=== PATIENT | female | born 1995 | race Caucasian/White ===

== ENCOUNTER 2017-11-24 08:49 | Emergency (ER) | payer OTHER ==
[2017-11-24 08:55] VITALS: BP 119/74
--- NOTE | 2017-11-24 08:57 | EDPHY ---
H & P Stated Complaint: + mono dx friday rx dexamethasone/not better r ear pain Time Seen by Provider: 11/24/17 08:51 HPI/ROS: CHIEF COMPLAINT: Sore throat, right ear pain HISTORY OF PRESENT ILLNESS: The patient presents the ED with complaints of an ongoing sore throat right ear pain. She developed symptoms on . She was seen at urgent care and diagnosed with mono. She re-presented over the weekend with increasing pharyngeal pain and swelling. She was started on dexamethasone at that point time. The patient was diagnosed with a positive IgM titer. The patient was prescribed a short course of dexamethasone the during her repeat visit to the Urgent Care over the weekend. The patient denies any significant abdominal pain. She denies vomiting or diarrhea. She has been taking Tylenol and ibuprofen at home. REVIEW OF SYSTEMS: A comprehensive 10 point review of systems is otherwise negative aside from elements mentioned in the history of present illness. Source: Patient Exam Limitations: No limitations - Personal History LMP (Females 10-55): IUD In Place Current Tetanus Diphtheria and Acellular Pertussis (TDAP): Yes - Medical/Surgical History Hx Asthma: No Hx Chronic Respiratory Disease: No Hx Diabetes: No Hx Cardiac Disease: No Hx Renal Disease: No Hx Cirrhosis: No Hx Alcoholism: No Hx HIV/AIDS: No Hx Splenectomy or Spleen Trauma: No Other PMH: denies - Social History Smoking Status: Never smoked - Physical Exam Exam: General Appearance: Alert, no distress Eyes: Pupils equal and round no pallor or injection ENT, Mouth: Bilateral tonsillar exudates and mild swelling, no clinical evidence of peritonsillar abscess or retropharyngeal abscess. Right tympanic membrane is clear without evidence of effusion or infection. Respiratory: There are no retractions, lungs are clear to auscultation Cardiovascular: Regular rate and rhythm Gastrointestinal: Abdomen is soft and nontender, no masses, bowel sounds normal Neurological: 5/5 strength all 4 extremities Skin: Warm and dry, no rashes Musculoskeletal: Neck is supple nontender, no clinical evidence of meningitis. Extremities: symmetrical, full range of motion Constitutional: Initial Vital Signs Temperature (C) 36.9 C 11/24/17 08:53 Heart Rate 84 11/24/17 08:53 Respiratory Rate 18 11/24/17 08:53 Blood Pressure 119/74 11/24/17 08:53 O2 Sat (%) 97 11/24/17 08:53 O2 Delivery Mode Room Air Allergies/Adverse Reactions: amoxicillin Allergy (Verified 11/24/17 08:52) Home Medications: Medication Instructions Recorded DEXAMETHASONE 11/24/17 oxyCODONE IR [Oxycodone Ir (*)] 5 mg PO Q8 PRN #10 tab 11/24/17 Medical Decision Making ED Course/Re-evaluation: The patient presents the ED with symptomatic mononucleosis without evidence of peritonsillar abscess or meningitis. She is well-appearing and well-hydrated. The patient has been instructed to continue fluid rehydration. She should continue Tylenol and ibuprofen as needed for pain. She is taking dexamethasone for 2 more days for pharyngeal swelling. The patient will be provided a short course of Oxy IR for additional analgesia. She has been instructed about the dangers of this medication. Departure - Departure Disposition: Home, Routine, Self-Care Clinical Impression: Mononucleosis Condition: Good Instructions: Mononucleosis (ED) Additional Instructions: 1. Please continue the medications prescribed at urgent care. 2. Tylenol and ibuprofen for pain. 3. Oxy IR as needed for severe pain. 4. Please return to the ED for markedly worsening symptoms or other concerns. 5. Please follow up with your primary care provider at the [facility] as needed.
== END 2017-11-24 09:15 | disposition home or self-care (01) ==
DX: B27.90 Infectious mononucleosis, unspecified without complication (principal)

== ENCOUNTER 2018-05-01 02:35 | Emergency (ER) | payer OTHER ==
--- NOTE | 2018-05-01 02:38 | EDPHY ---
H & P Time Seen by Provider: 05/01/18 02:36 HPI/ROS: HPI CHIEF COMPLAINT: Alcohol Intoxication HISTORY OF PRESENT ILLNESS: 22-year-old female, otherwise healthy, had alcohol this evening. She placed on a [employer] hold, and was being transported to the detox center where she vomited the back of the comp car. This caused him to bring her here. Denies drugs. Denies feeling unwell. She arrives to the emergency room in no acute distress. She ambulates very well. She is not vomiting. Past Medical History: Denies significant medical history Past Surgical History: Denies significant surgical history Social History: Alcohol this evening. Patient reports 6 shots Family History: Noncontributory ROS REVIEW OF SYSTEMS: 10 Systems were reviewed and negative with the exception of the elements mentioned in the history of present illness. Exam Constitutional triage nursing summary reviewed, vital signs reviewed, Sleepy, smells of alcohol Eyes normal conjunctivae and sclera, horizontal beating nystagmus consistent acute alcohol intoxication, otherwise pupils equal and react to light HENT normal inspection, atraumatic, moist mucus membranes, no epistaxis, neck supple/ no meningismus, no raccoon eyes. Respiratory clear to auscultation bilaterally, normal breath sounds, no respiratory distress, no wheezing. Cardiovascular rate normal, regular rhythm, no murmur, no edema, distal pulses normal. Gastrointestinal soft, non-tender, no rebound, no guarding, normal bowel sounds, no distension, no pulsatile mass. Genitourinary no CVA tenderness. Musculoskeletal no midline vertebral tenderness, full range of motion, no calf swelling, no tenderness of extremities, no meningismus, good pulses, neurovascularly intact. Skin pink, warm, & dry, no rash, skin atraumatic. Neurologic alert and oriented x 3, AAOx3, moves all 4 extremities equally, motor intact, sensory intact, CN II-XII intact, , normal vision, normal speech. Psychiatric normal mood/affect. Normal gait. Heme/Lymph/Immune no lymphadenopathy. Differential Diagnosis: Includes but is not limited to in a particular order acute alcohol intoxication, alcohol abuse, dehydration, electrolyte abnormality , nausea vomiting from acute alcohol intoxication Medical Decision Making: Plan for this patient she ambulated well to the bathroom. Has normal vital signs. Answers questions appropriately. Clinically sober. Re-evaluation: Breath alcohol 189. Patient's vital signs stable. Patient hemodynamically stable. Patient clinically sober and ambulates well throughout the emergency room. Patient answer questions appropriately. No vomiting Safe for discharge. Discharged with police to the [employer]. Source: Patient, Police - Medical/Surgical History Hx Asthma: No Hx Chronic Respiratory Disease: No Hx Diabetes: No Hx Cardiac Disease: No Hx Renal Disease: No Hx Cirrhosis: No Hx Alcoholism: No Hx HIV/AIDS: No Hx Splenectomy or Spleen Trauma: No Other PMH: denies - Social History Smoking Status: Never smoked Constitutional: Initial Vital Signs Temperature (C) 36.7 C 05/01/18 02:42 Heart Rate 83 05/01/18 02:42 Respiratory Rate 16 05/01/18 02:42 Blood Pressure 112/71 05/01/18 02:42 O2 Sat (%) 97 05/01/18 02:42 O2 Delivery Mode Room Air Allergies/Adverse Reactions: amoxicillin Allergy (Verified 05/01/18 02:35) Home Medications: Medication Instructions Recorded DEXAMETHASONE 11/24/17 oxyCODONE IR [Oxycodone Ir (*)] 5 mg PO Q8 PRN #10 tab 11/24/17 Departure - Departure Disposition: Home, Routine, Self-Care Clinical Impression: Alcohol intoxication Qualifiers: Complication of substance-induced condition: uncomplicated Qualified Code(s): F10.920 - Alcohol use, unspecified with intoxication, uncomplicated Condition: Good Instructions: Alcohol Intoxication (ED), Abuse of Alcohol (ED)
[2018-05-01 02:43] VITALS: BP 112/71
== END 2018-05-01 02:53 | disposition home or self-care (01) ==
DX: F10.920 Alcohol use, unspecified with intoxication, uncomplicated (principal)